=== PATIENT | male | born 1995 | race African-American/Black ===

== ENCOUNTER 2021-12-23 12:37 | Emergency (ER) | payer OTHER, SELFPAY ==
[2021-12-23 12:45] VITALS: BP 149/90; PULSE 70; RESP 14; TEMP 36.9; O2SAT 100
--- NOTE | 2021-12-23 12:47 | ED.URI ---
HPI - URI/Sore Throat General Chief Complaint: Upper Respiratory Infection Stated Complaint: covid exposure Time Seen by Provider: 12/23/21 12:46 History of Present Illness HPI Narrative: The patient is a 26 yo previously healthy male presenting for evaluation of cough, congestion, diarrhea which has been intermittent over the past 24 hours. Pt states he has decreased appetite, myalgias as well as congestion. Patient has no known history of COVID and has not been vaccinated for COVID. He and significant other had a positive at-home test. Patient states his work note requires confirmatory PCR testing. Patient denies any significant chest pain, shortness of breath. He has been able to tolerate oral intake. Patient denies fever, chills, he does report loose stools. He denies any abdominal pain. Related Data Allergies Allergy/AdvReac Type Severity Reaction Status Date / Time No Known Allergies Allergy Verified 12/23/21 12:57 Review of Systems Review of Systems: CONSTITUTIONAL: Denies fever, chills, or sweats. EYES: Denies visual changes, redness, or discharge. ENT: Reports rhinorrhea, congestion CARDIOVASCULAR: Denies chest pain, palpitations, or edema. RESPIRATORY: Reports cough without dyspnea. GASTROINTESTINAL: Denies abdominal pain, nausea, vomiting, reports intermittently loose stools without blood or mucus GENITOURINARY: Denies dysuria or hematuria. SKIN: Denies rash or itching. MUSCULOSKELETAL: Denies back pain, joint pain, reports myalgias NEUROLOGIC: Denies headache, numbness, or weakness. [facility] Social History Social History (Updated 12/23/21 @ 13:10 by Jesika Espinoza MD) Smoking status: Never smoker Alcohol intake: never Substance use: never Living arrangements: with family Gender identity (if verbalized by the patient): Male Exam Narrative: GENERAL: Awake, alert, conversant HEAD: Normocephalic, atraumatic. EYES: PERRLA and EOMI. ENT: Nares clear, no rhinorrhea or epistaxis. Mucous membranes moist. NECK: Supple. CHEST: No respiratory distress, breathing even and non labored, lungs are clear to auscultation bilaterally without crackles, wheezing, rhonchi HEART: Regular rate, sinus rhythm ABDOMEN:Non distended, non tender EXTREMITIES: Normal range of motion. No edema. SKIN: Warm, dry, no rash. NEURO:No focal deficits. Alert and oriented x3. Patient is ambulatory with a narrow base, steady gait, no ataxia, no weakness. Course Vital Signs Vital signs: Vital Signs Temperature 36.9 C 12/23/21 12:45 Pulse Rate 70 12/23/21 12:45 Respiratory Rate 14 12/23/21 12:45 Blood Pressure 149/90 H 12/23/21 12:45 Pulse Oximetry 100 12/23/21 12:45 Oxygen Delivery Room Air 12/23/21 12:45 Temperature 36.9 C 12/23/21 12:45 Pulse Rate 70 12/23/21 12:45 Respiratory Rate 14 12/23/21 12:45 Blood Pressure 149/90 H 12/23/21 12:45 Pulse Oximetry 100 12/23/21 12:45 Oxygen Delivery Room Air 12/23/21 12:59 MDM - URI/Sore Throat MDM Narrative Medical decision making narrative: Patient presenting for evaluation of rhinorrhea, myalgias, diarrhea. At the time of assessment, patient is mildly hypertensive, otherwise well-appearing. Lungs are clear to auscultation bilaterally. No abdominal pain on exam. He has hydrated appearing with stable vital signs. Patient is here requesting a COVID PCR test that he requires for work as well as a work note. He did have a positive at-home test. Given normal vital signs, patient well-appearing without sign of any significant distress, lungs clear, low suspicion for viral pneumonia. Chest x-ray was not obtained. No chest pain or other symptoms that would be suggestive of PE. Influenza negative. PCR positive for COVID. Because patient is unvaccinated current guidelines recommend quarantine for 10 days. Patient then discharged home. Lab Data Labs: Lab Results 12/23/21 Range/Units 13:21 Influenza A (RT-PCR) Negative (Negative
[2021-12-23] MEDS: ACETAMINOPHEN 500 MG TABLET 1000 MG PO (13:19)
[2021-12-23 14:11] LABS: Influenza A QL RT-PCR Negative (Negative); Influenza B QL RT-PCR Negative (Negative); SARS-CoV-2 RNA PCR Positive
[2021-12-23 14:44] VITALS: BP 147/87; PULSE 70; RESP 16; TEMP 37.1; O2SAT 98
== END 2021-12-23 14:44 | disposition home or self-care (01) ==
PROVIDERS: Emergency Provider Emergency Medicine
DX: U07.1 COVID-19 (principal); Z28.310 Unvaccinated for COVID-19
CPT/HCPCS: 87502; 99283; A9270; C9803; U0003; U0005